=== PATIENT | male | born 1985 | race Caucasian/White ===

== ENCOUNTER 2020-05-05 00:29 | Emergency (ER) | payer OTHER ==
[~2020-05-05 00:29] MED LIST: TAMIFLU 75 MG C75 MG PO
[2020-05-05 01:44] LABS: HEMOGLOBIN 14.2 gm/dl (14.0-17.5); RED BLOOD COUNT 4.45 M/UL (4.20-5.50); WHITE BLOOD COUNT 8.7 K/UL (4.5-11.0)
[2020-05-05 02:13] LABS: BUN/CREATININE RATIO 8 (0-10)
== END 2020-05-05 06:05 | disposition home or self-care (01) ==
LOC: ER1 00:29
PROVIDERS: Emergency Medicine
DX: T14.8XXA Other injury of unspecified body region, initial encounter (principal); S00.81XA Abrasion of other part of head, initial encounter; I10 Essential (primary) hypertension; V49.9XXA Car occupant (driver) (passenger) injured in unspecified traffic accident, initial encounter; Y92.410 Unspecified street and highway as the place of occurrence of the external cause
CPT/HCPCS: 70450; 70486; 71045; 71260; 72125; 72128; 72131; 73552; 80053; 80307; 81001; 84484; 85025; 86850; 86900; 86901; 99284; G0480; Q9967

== ENCOUNTER 2020-06-22 06:55 | Emergency (ER) | payer OTHER ==
[2020-06-22] MEDS ORDERED: BACTRIM DS TAB1 EACH PO (07:48)
[2020-06-22] MEDS ORDERED: CEPHALEXIN500 MG PO (07:48)
== END 2020-06-22 08:30 | disposition home or self-care (01) ==
LOC: ER1 06:55
DX: L03.211 Cellulitis of face (principal); F17.200 Nicotine dependence, unspecified, uncomplicated
CPT/HCPCS: 99283; J7030

== ENCOUNTER 2020-06-23 05:27 | Emergency (ER) | payer OTHER ==
[~2020-06-23] VITALS: Ht 188 cm; Wt 68.0 kg
[~2020-06-23 05:27] MED LIST changes: +BACTRIM DS TAB1 EACH PO; +CEPHALEXIN500 MG PO
[2020-06-23 06:26] LABS: HEMOGLOBIN 14.2 gm/dl (14.0-17.5); RED BLOOD COUNT 4.51 M/UL (4.20-5.50); WHITE BLOOD COUNT 10.2 K/UL (4.5-11.0)
[2020-06-23 06:53] LABS: BUN/CREATININE RATIO 10 (0-10)
== END 2020-06-23 08:42 | disposition short-term general hospital (02) ==
LOC: ER1 05:27
PROVIDERS: Emergency Medicine
DX: K12.2 Cellulitis and abscess of mouth (principal); F17.200 Nicotine dependence, unspecified, uncomplicated
CPT/HCPCS: 31500; 36556; 70491; 71045; 80053; 85025; 87040; 94002; 96365; 96366; 96367; 96368; 96375; 99284; C1751; J1100; J3370; J7030; Q9963; Q9967

== ENCOUNTER 2020-11-15 18:21 | Emergency (ER) | payer OTHER ==
[2020-11-16] MEDS ORDERED: CYCLOBENZAPRINE10 MG PO (12:15)
[2020-11-16] MEDS ORDERED: IBUPROFEN600 MG PO (12:15)
== END 2020-11-15 18:27 | disposition left against medical advice (07) ==
LOC: ER1 18:21
DX: Z53.21 Procedure and treatment not carried out due to patient leaving prior to being seen by health care provider (principal)

== ENCOUNTER 2020-11-16 09:22 | Emergency (ER) | payer OTHER ==
[2020-11-16 11:26] LABS: HEMOGLOBIN 15.6 gm/dl (14.0-17.5); RED BLOOD COUNT 5.12 M/UL (4.20-5.50); WHITE BLOOD COUNT 8.3 K/UL (4.5-11.0)
[2020-11-16 11:53] LABS: BUN/CREATININE RATIO 10 (0-10)
[2020-11-16] MEDS ORDERED: CYCLOBENZAPRINE10 MG PO (12:15)
[2020-11-16] MEDS ORDERED: IBUPROFEN600 MG PO (12:15)
== END 2020-11-16 12:28 | disposition home or self-care (01) ==
LOC: ER1 09:22
PROVIDERS: Emergency Medicine
DX: M51.36 Other intervertebral disc degeneration, lumbar region (principal); R79.89 Other specified abnormal findings of blood chemistry; F17.200 Nicotine dependence, unspecified, uncomplicated; Y08.89XA Assault by other specified means, initial encounter
CPT/HCPCS: 72131; 80053; 85025; 85652; 86140; 96374; 96375; 99284; J2270; J2405